=== PATIENT | female | born 1950 | race Caucasian/White ===

== ENCOUNTER 2019-04-10 15:59 | Inpatient (IN) ==
[2019-04-10] MEDS ORDERED: SODIUM CHLORIDE 0.9% 500 ML IV STA (18:28)
[2019-04-10 19:13] LABS: Hemoglobin 13.1 GM/DL (12.0-16.0); Immature Granulocytes % 0.6 %; Immature Granulocytes Absolute 0.08 #; Lymphocytes # 1.7 10*3/uL (1.4-4.0); Mean Corpuscular HGB Conc 31.2 GM/DL (32-36); Mean Corpuscular Volume 95.9 FL (87-102); Mean Platelet Volume 10.7 FL (9.6-12.0); Monocytes % 4.2 % (1.7-12.7); Neutrophils % 83.2 % (38.7-73.9); Platelet Count 341 T/CUMM (130-400); Red Blood Count 4.38 MC/CUMM (3.8-5.5); White Blood Count 14.1 T/CUMM (4-12)
[2019-04-10 19:26] LABS: Apearance,Urine CLEAR (Clear); Bilirubin,Urine Negative (Negative); Blood, Urine Negative (Negative); Glucose,Urine (UA) Negative (Negative); Ketones,Urine Negative (Negative); Nitrite,Urine Negative (Negative); Protein,Urine Negative; Urine Color Straw (Yellow); Urine Specific Gravity 1.009 (1.001-1.035); Urine Urobilinogen < 2.0 EU/DL (0.2-1.0)
[2019-04-10 19:31] LABS: Alanine Aminotransferase 24 U/L (13-56); Albumin 3.2 G/DL (3.4-5.0); Alkaline Phosphatase 90 U/L (45-117); Aspartate Amino Transferase 36 U/L (0-37); Blood Urea Nitrogen 30 MG/DL (7-18); Calcium 9.9 MG/DL (8.5-10.1); Estimated Glom Filtration Rate 32 ML/MIN; Glucose 111 MG/DL (74-106); Osmolality,Calculated 285.4 MOS/KG (273-304); Total Protein 7.6 G/DL (6.4-8.3); Troponin I < 0.015 NG/ML (0.00-0.045)
[2019-04-10 19:43] LABS: Barbiturates Screen,Urine Negative (Negative); Benzodiazepines Screen,Urine Negative (Negative); Cannabinoid Screen,Urine Negative (Negative); Opiate Screen,Urine Negative (Negative); Phencyclidine Screen,Urine Negative (Negative)
[2019-04-10] MEDS ORDERED: ONDANSETRON 4 MG/2 ML VIAL IV PRN (22:16)
[2019-04-10] MEDS ORDERED: FLUTICASONE 50 MCG NASAL SPRAY 16 GM BOTTLE BOTH NARES PRN (22:21)
[2019-04-10] MEDS ORDERED: OLOPATADINE 0.1% OPH SOLN 5 ML BOTTLE BOTH EYES PRN (22:21)
[2019-04-10] MEDS ORDERED: DEXTROSE 5% NACL 0.45% 1,000 ML IV SCH (22:30)
[2019-04-11 05:49] LABS: Basophils % 0.1 % (0.0-0.8); Hematocrit 43.4 VOL% (35.7-47.0); Hemoglobin 13.3 GM/DL (12.0-16.0); Immature Granulocytes % 0.6 %; Immature Granulocytes Absolute 0.07 #; Lymphocytes # 1.8 10*3/uL (1.4-4.0); Lymphocytes % 14.3 % (21.3-54.2); Mean Corpuscular HGB Conc 30.6 GM/DL (32-36); Mean Corpuscular Volume 96.7 FL (87-102); Mean Platelet Volume 10.9 FL (9.6-12.0); Monocytes % 6.1 % (1.7-12.7); Neutrophils % 78.9 % (38.7-73.9); Platelet Count 335 T/CUMM (130-400); Red Blood Count 4.49 MC/CUMM (3.8-5.5); Red Cell Distribution Width 14.1 % (9.3-17.3); White Blood Count 12.4 T/CUMM (4-12)
[2019-04-11] MEDS ORDERED: LEVOTHYROXINE 50 MCG TABLET PO SCH (06:30)
[2019-04-11 06:36] LABS: Albumin 2.8 G/DL (3.4-5.0); Bilirubin,Total 0.4 MG/DL (0.2-1.0); Calcium 9.5 MG/DL (8.5-10.1); Osmolality,Calculated 288.3 MOS/KG (273-304); Thyroid Stimulating Hormone 0.116 uIU/ml (0.358-3.74); Total Protein 6.9 G/DL (6.4-8.3)
[2019-04-11] MEDS: ENOXAPARIN 40 MG/0.4 ML SYRINGE SUBCUT SCH ×2 (07:20→09:02)
[2019-04-11] MEDS: PANTOPRAZOLE 40 MG TABLET PO SCH (09:02)
[2019-04-11] MEDS: ESCITALOPRAM 10 MG TABLET PO SCH (09:02)
[2019-04-11 18:26] LABS: Folate 2.9 NG/ML (5.4-24.0); Vitamin B12 420 PG/ML (211-911)
[2019-04-12 06:00] LABS: Calcium 8.9 MG/DL (8.5-10.1); Osmolality,Calculated 297.6 MOS/KG (273-304)
[2019-04-12 06:20] LABS: Basophils % 0.1 % (0.0-0.8); Eosinophils % 0.2 % (0.00-10.9); Hematocrit 43.7 VOL% (35.7-47.0); Hemoglobin 13.3 GM/DL (12.0-16.0); Immature Granulocytes % 0.7 %; Immature Granulocytes Absolute 0.07 #; Lymphocytes # 2.2 10*3/uL (1.4-4.0); Lymphocytes % 20.9 % (21.3-54.2); Mean Corpuscular HGB Conc 30.4 GM/DL (32-36); Mean Corpuscular Volume 97.8 FL (87-102); Mean Platelet Volume 11.7 FL (9.6-12.0); Monocytes % 8.3 % (1.7-12.7); Neutrophils % 69.8 % (38.7-73.9); Platelet Count 230 T/CUMM (130-400); Red Blood Count 4.47 MC/CUMM (3.8-5.5); Red Cell Distribution Width 14.3 % (9.3-17.3); White Blood Count 10.4 T/CUMM (4-12)
[2019-04-12] MEDS ORDERED: LEVOTHYROXINE 75 MCG TABLET PO SCH (07:00)
[2019-04-12] MEDS: PANTOPRAZOLE 40 MG TABLET PO SCH (08:38)
[2019-04-12] MEDS: ESCITALOPRAM 10 MG TABLET PO SCH (08:38)
[2019-04-12] MEDS: ENOXAPARIN 40 MG/0.4 ML SYRINGE SUBCUT SCH (08:41)
[2019-04-12 11:36] VITALS: BP 152/90
== END 2019-04-12 18:46 | disposition home or self-care (01) | DRG 93 ==
LOC: N.ED 15:59 → SUATTDRO 22:16 → N.EDINP 22:16 → N.4E 04-11 00:20
PROVIDERS: ADMIT Internal Medicine; ATTEND Family Medicine

== ENCOUNTER 2019-11-27 15:32 | Inpatient (IN) ==
[2019-11-27] MEDS ORDERED: SODIUM CHLORIDE 0.9% 500 ML IV STA (18:40)
[2019-11-27 19:00] LABS: Basophils # 0.1 10*3/uL (0.0-0.2); Basophils % 0.5 % (0.0-0.8); Eosinophils # 0.5 10*3/uL (0.0-0.87); Eosinophils % 5.7 % (0.00-10.9); Hematocrit 36.1 VOL% (35.7-47.0); Hemoglobin 11.2 GM/DL (12.0-16.0); Immature Granulocytes % 0.2 %; Immature Granulocytes Absolute 0.02 #; Lymphocytes # 2.8 10*3/uL (1.4-4.0); Mean Corpuscular Volume 100.3 FL (87-102); Mean Platelet Volume 10.8 FL (9.6-12.0); Monocytes % 6.6 % (1.7-12.7); Platelet Count 287 T/CUMM (130-400); Red Cell Distribution Width 14.6 % (9.3-17.3); White Blood Count 9.5 T/CUMM (4-12)
[2019-11-27 19:07] LABS: INR 1.1; PT Patient Result 11.4 SECS (9.8-11.9)
[2019-11-27 19:12] LABS: Alanine Aminotransferase 15 U/L (13-56); Alkaline Phosphatase 96 U/L (45-117); Aspartate Amino Transferase 17 U/L (0-37); Blood Urea Nitrogen 14 MG/DL (7-18); Calcium 9.5 MG/DL (8.5-10.1); Estimated Glom Filtration Rate 39 ML/MIN; Glucose 99 MG/DL (74-106); Osmolality,Calculated 283.1 MOS/KG (273-304); Total Protein 6.6 G/DL (6.4-8.3)
[2019-11-27 20:10] LABS: Apearance,Urine CLEAR (Clear); Bacteria,Urine Occasional /HPF (Few); Bilirubin,Urine Negative (Negative); Blood, Urine Negative (Negative); Glucose,Urine (UA) Negative (Negative); Ketones,Urine Negative (Negative); Nitrite,Urine Negative (Negative); Protein,Urine Negative; Squamous Epithelial Cell,Urine Occasional /HPF (0-10); Urine Color Yellow (Yellow); Urine Specific Gravity 1.008 (1.001-1.035); Urine Urobilinogen < 2.0 EU/DL (0.2-1.0)
[2019-11-27] MEDS ORDERED: POTASSIUM CHLORIDE 20 MEQ TABLET PO STA (20:19)
[2019-11-27] MEDS ORDERED: PIPERACILLIN/TAZOBACTAM 3,375 MG in SODIUM CHLORIDE 0.9% 100 ML IV STA (20:22)
[2019-11-27 20:24] LABS: Barbiturates Screen,Urine Negative (Negative); Benzodiazepines Screen,Urine Negative (Negative); Cannabinoid Screen,Urine Negative (Negative); Opiate Screen,Urine Negative (Negative); Phencyclidine Screen,Urine Negative (Negative)
[2019-11-27] MEDS ORDERED: ACETAMINOPHEN 325 MG TABLET PO PRN (21:57)
[2019-11-27] MEDS ORDERED: DOCUSATE SODIUM 100 MG CAPSULE PO PRN (21:57)
[2019-11-27] MEDS ORDERED: ONDANSETRON 4 MG/2 ML VIAL IV PRN (21:57)
[2019-11-27] MEDS ORDERED: POTASSIUM CHLORIDE 20 MEQ TABLET PO PRN (22:03)
[2019-11-27] MEDS ORDERED: NITROGLYCERIN SL 0.4 MG TABLET SL PRN (22:09)
[2019-11-27] MEDS ORDERED: CETIRIZINE 10 MG TABLET PO PRN (22:09)
[2019-11-27] MEDS ORDERED: OXcarbazepine 300 MG TABLET PO PRN (22:09)
[2019-11-27] MEDS ORDERED: traMADol 50 MG TABLET PO PRN (22:09)
[2019-11-27] MEDS ORDERED: DIPHENOXYLATE/ATROPINE 2.5-0.025 MG TABLET PO PRN (22:09)
[2019-11-28] MEDS ORDERED: LITHIUM 150 MG CAPSULE PO SCH (00:30)
[2019-11-28] MEDS: ENOXAPARIN 40 MG/0.4 ML SYRINGE SUBCUT SCH ×2 (01:20→21:19)
[2019-11-28] MEDS: LITHIUM 150 MG CAPSULE PO SCH ×2 (02:00→21:19)
[2019-11-28] MEDS: QUEtiapine 100 MG TABLET PO SCH ×2 (02:00→21:19)
[2019-11-28] MEDS: PIPERACILLIN/TAZOBACTAM 3,375 MG in SODIUM CHLORIDE 0.9% 100 ML IV SCH ×3 (04:54→21:18)
[2019-11-28 06:29] LABS: Basophils # 0.1 10*3/uL (0.0-0.2); Basophils % 0.5 % (0.0-0.8); Eosinophils # 0.4 10*3/uL (0.0-0.87); Eosinophils % 4.2 % (0.00-10.9); Hemoglobin 11.3 GM/DL (12.0-16.0); Immature Granulocytes % 0.4 %; Immature Granulocytes Absolute 0.04 #; Lymphocytes # 1.7 10*3/uL (1.4-4.0); Lymphocytes % 17.8 % (21.3-54.2); Mean Corpuscular HGB Conc 31.4 GM/DL (32-36); Mean Corpuscular Volume 100.8 FL (87-102); Mean Platelet Volume 10.3 FL (9.6-12.0); Neutrophils % 71.1 % (38.7-73.9); Platelet Count 277 T/CUMM (130-400); Red Blood Count 3.57 MC/CUMM (3.8-5.5); Red Cell Distribution Width 14.6 % (9.3-17.3); White Blood Count 9.7 T/CUMM (4-12)
[2019-11-28 07:05] LABS: Calcium 9.5 MG/DL (8.5-10.1)
[2019-11-28] MEDS: PANTOPRAZOLE 40 MG TABLET PO SCH ×2 (07:29→21:19)
[2019-11-28] MEDS: OLOPATADINE 0.1% OPH SOLN 5 ML BOTTLE RIGHT EYE SCH ×3 (07:29→21:00)
[2019-11-28] MEDS: POTASSIUM CHLORIDE 20 MEQ TABLET PO SCH (09:30)
[2019-11-28] MEDS: ASPIRIN EC 81 MG TABLET PO SCH (09:30)
[2019-11-28] MEDS: CHOLECALCIFEROL 5,000 UNIT TABLET PO SCH (09:30)
[2019-11-28] MEDS: ESCITALOPRAM 10 MG TABLET PO SCH (09:30)
[2019-11-28] MEDS: LITHIUM 300 MG CAPSULE PO SCH (09:30)
[2019-11-28] MEDS ORDERED: FUROSEMIDE 40 MG TABLET PO PRN (10:51)
[2019-11-28] MEDS: SODIUM CHLORIDE 0.9% 1,000 ML IV SCH (11:51)
[2019-11-28] MEDS: DOXYCYCLINE HYCLATE INJ 100 MG in SODIUM CHLORIDE 0.9% 100 ML IV SCH (11:52)
[2019-11-29] MEDS: DOXYCYCLINE HYCLATE INJ 100 MG in SODIUM CHLORIDE 0.9% 100 ML IV SCH ×2 (01:40→12:27)
[2019-11-29] MEDS: PIPERACILLIN/TAZOBACTAM 3,375 MG in SODIUM CHLORIDE 0.9% 100 ML IV SCH ×3 (05:39→20:56)
[2019-11-29 06:16] LABS: Basophils % 0.5 % (0.0-0.8); Eosinophils # 0.4 10*3/uL (0.0-0.87); Eosinophils % 5.8 % (0.00-10.9); Hematocrit 36.6 VOL% (35.7-47.0); Hemoglobin 11.6 GM/DL (12.0-16.0); Immature Granulocytes % 0.3 %; Immature Granulocytes Absolute 0.02 #; Lymphocytes # 1.7 10*3/uL (1.4-4.0); Lymphocytes % 22.7 % (21.3-54.2); Mean Corpuscular HGB Conc 31.7 GM/DL (32-36); Mean Corpuscular Volume 99.2 FL (87-102); Mean Platelet Volume 10.2 FL (9.6-12.0); Monocytes % 6.7 % (1.7-12.7); Platelet Count 261 T/CUMM (130-400); Red Blood Count 3.69 MC/CUMM (3.8-5.5); Red Cell Distribution Width 14.6 % (9.3-17.3); White Blood Count 7.6 T/CUMM (4-12)
[2019-11-29 06:36] LABS: Calcium 9.8 MG/DL (8.5-10.1); Osmolality,Calculated 293.3 MOS/KG (273-304)
[2019-11-29 07:33] LABS: Osmolality,Calculated 290.4 MOS/KG (273-304)
[2019-11-29] MEDS: SODIUM CHLORIDE 0.9% 1,000 ML IV SCH (08:23)
[2019-11-29] MEDS: ESCITALOPRAM 10 MG TABLET PO SCH (08:31)
[2019-11-29] MEDS: CHOLECALCIFEROL 5,000 UNIT TABLET PO SCH (08:31)
[2019-11-29] MEDS: OLOPATADINE 0.1% OPH SOLN 5 ML BOTTLE RIGHT EYE SCH ×2 (08:31→20:57)
[2019-11-29] MEDS: LITHIUM 300 MG CAPSULE PO SCH (08:31)
[2019-11-29] MEDS: ASPIRIN EC 81 MG TABLET PO SCH (08:31)
[2019-11-29] MEDS: POTASSIUM CHLORIDE 20 MEQ TABLET PO SCH (08:31)
[2019-11-29] MEDS: PANTOPRAZOLE 40 MG TABLET PO SCH (20:55)
[2019-11-29] MEDS: QUEtiapine 100 MG TABLET PO SCH (20:55)
[2019-11-29] MEDS: LITHIUM 150 MG CAPSULE PO SCH (20:56)
[2019-11-29] MEDS: ENOXAPARIN 40 MG/0.4 ML SYRINGE SUBCUT SCH (21:03)
[2019-11-30] MEDS: DOXYCYCLINE HYCLATE INJ 100 MG in SODIUM CHLORIDE 0.9% 100 ML IV SCH ×2 (02:03→11:39)
[2019-11-30 05:34] LABS: Basophils # 0.1 10*3/uL (0.0-0.2); Basophils % 0.9 % (0.0-0.8); Eosinophils # 0.4 10*3/uL (0.0-0.87); Eosinophils % 4.7 % (0.00-10.9); Hematocrit 37.9 VOL% (35.7-47.0); Hemoglobin 11.6 GM/DL (12.0-16.0); Immature Granulocytes % 0.4 %; Immature Granulocytes Absolute 0.03 #; Lymphocytes # 2.2 10*3/uL (1.4-4.0); Lymphocytes % 27.6 % (21.3-54.2); Mean Corpuscular HGB Conc 30.6 GM/DL (32-36); Mean Corpuscular Volume 101.9 FL (87-102); Mean Platelet Volume 10.5 FL (9.6-12.0); Monocytes % 7.3 % (1.7-12.7); Neutrophils % 59.1 % (38.7-73.9); Platelet Count 284 T/CUMM (130-400); Red Blood Count 3.72 MC/CUMM (3.8-5.5)
[2019-11-30] MEDS: PIPERACILLIN/TAZOBACTAM 3,375 MG in SODIUM CHLORIDE 0.9% 100 ML IV SCH ×3 (05:43→20:22)
[2019-11-30 06:06] LABS: Calcium 10.2 MG/DL (8.5-10.1); Osmolality,Calculated 293.1 MOS/KG (273-304)
[2019-11-30] MEDS ORDERED: LORazepam 2 MG/1 ML VIAL IV PRN (07:14)
[2019-11-30] MEDS ORDERED: OXcarbazepine 300 MG TABLET PO SCH (09:00)
[2019-11-30] MEDS: CHOLECALCIFEROL 5,000 UNIT TABLET PO SCH (09:45)
[2019-11-30] MEDS: LITHIUM 300 MG CAPSULE PO SCH (09:45)
[2019-11-30] MEDS: POTASSIUM CHLORIDE 20 MEQ TABLET PO SCH (09:45)
[2019-11-30] MEDS: ESCITALOPRAM 10 MG TABLET PO SCH (09:45)
[2019-11-30] MEDS: ASPIRIN EC 81 MG TABLET PO SCH (09:45)
[2019-11-30] MEDS: amLODIPine 2.5 MG TABLET PO SCH (09:45)
[2019-11-30] MEDS: OLOPATADINE 0.1% OPH SOLN 5 ML BOTTLE RIGHT EYE SCH ×2 (10:58→20:25)
[2019-11-30] MEDS: LITHIUM 150 MG CAPSULE PO SCH (20:22)
[2019-11-30] MEDS: QUEtiapine 100 MG TABLET PO SCH (20:22)
[2019-11-30] MEDS: PANTOPRAZOLE 40 MG TABLET PO SCH (20:22)
[2019-11-30] MEDS: DEXTROSE 5% 1,000 ML IV SCH (20:23)
[2019-11-30] MEDS: OXcarbazepine 300 MG TABLET PO SCH (20:24)
[2019-11-30] MEDS: ENOXAPARIN 40 MG/0.4 ML SYRINGE SUBCUT SCH (22:37)
[2019-12-01] MEDS: DOXYCYCLINE HYCLATE INJ 100 MG in SODIUM CHLORIDE 0.9% 100 ML IV SCH (00:51)
[2019-12-01 05:44] LABS: Amorphous Crystals,Urine Occasional /HPF (Few); Apearance,Urine CLEAR (Clear); Bacteria,Urine Occasional /HPF (Few); Bilirubin,Urine Negative (Negative); Blood, Urine Negative (Negative); Glucose,Urine (UA) Negative (Negative); Ketones,Urine Negative (Negative); Mucus,Urine Occasional /LPF (Occasional); Nitrite,Urine Negative (Negative); Protein,Urine Negative; RBC,Urine 2 /HPF (0-4); Squamous Epithelial Cell,Urine Occasional /HPF (0-10); Urine Color Yellow (Yellow); Urine Specific Gravity 1.011 (1.001-1.035); Urine Urobilinogen < 2.0 EU/DL (0.2-1.0); WBC,Urine 1 /HPF (0-6)
[2019-12-01 05:55] LABS: Osmolality,Calculated 290.4 MOS/KG (273-304)
[2019-12-01 06:21] LABS: Basophils # 0.1 10*3/uL (0.0-0.2); Basophils % 0.7 % (0.0-0.8); Eosinophils # 0.4 10*3/uL (0.0-0.87); Eosinophils % 4.2 % (0.00-10.9); Hematocrit 38.9 VOL% (35.7-47.0); Hemoglobin 11.8 GM/DL (12.0-16.0); Immature Granulocytes % 0.4 %; Immature Granulocytes Absolute 0.04 #; Lymphocytes # 2.2 10*3/uL (1.4-4.0); Lymphocytes % 22.4 % (21.3-54.2); Mean Corpuscular HGB Conc 30.3 GM/DL (32-36); Mean Corpuscular Volume 103.2 FL (87-102); Mean Platelet Volume 10.3 FL (9.6-12.0); Monocytes % 5.9 % (1.7-12.7); Neutrophils % 66.4 % (38.7-73.9); Platelet Count 283 T/CUMM (130-400); Red Blood Count 3.77 MC/CUMM (3.8-5.5); Red Cell Distribution Width 15.3 % (9.3-17.3); White Blood Count 9.7 T/CUMM (4-12)
[2019-12-01] MEDS: PIPERACILLIN/TAZOBACTAM 3,375 MG in SODIUM CHLORIDE 0.9% 100 ML IV SCH (06:54)
[2019-12-01 07:20] VITALS: BP 153/70
[2019-12-01] MEDS: ASPIRIN EC 81 MG TABLET PO SCH (08:55)
[2019-12-01] MEDS: ESCITALOPRAM 10 MG TABLET PO SCH (08:55)
[2019-12-01] MEDS: OXcarbazepine 300 MG TABLET PO SCH (08:55)
[2019-12-01] MEDS: CHOLECALCIFEROL 5,000 UNIT TABLET PO SCH (08:56)
[2019-12-01] MEDS: LITHIUM 300 MG CAPSULE PO SCH (08:56)
[2019-12-01] MEDS: amLODIPine 2.5 MG TABLET PO SCH (08:56)
[2019-12-01] MEDS: POTASSIUM CHLORIDE 20 MEQ TABLET PO SCH (08:59)
[2019-12-01] MEDS ORDERED: BENZOCAINE 20% ORAL GEL 11.9 GM TUBE TOP PRN (09:41)
[2019-12-01] MEDS: OLOPATADINE 0.1% OPH SOLN 5 ML BOTTLE RIGHT EYE SCH (10:31)
[2019-12-01] MEDS: DEXTROSE 5% 1,000 ML IV SCH (13:42)
== END 2019-12-01 10:50 | DRG 885 ==
LOC: N.ED 15:32 → SUATTDRO 21:54 → N.EDINP 21:54 → N.2E 11-28 01:59 → N.4E 11-29 15:24
PROVIDERS: ADMIT Internal Medicine; ATTEND Internal Medicine